=== PATIENT | female | born 1995 | race Caucasian/White ===

== ENCOUNTER → 2017-02-22 | Outpatient (REF) | payer OTHER | LOC: M SFHCLERA 13:11 | PROVIDERS: ATTEND Nurse Practitioner Family | DX: L03.031 Cellulitis of right toe (principal) ==

== ENCOUNTER 2017-09-02 11:45 | Emergency (ER) | payer BC, OTHER | END 2017-09-02 13:14 | disposition home or self-care (01) | LOC: M ED 11:45 | DX: J30.9 Allergic rhinitis, unspecified (principal); R11.0 Nausea; Z32.02 Encounter for pregnancy test, result negative | CPT/HCPCS: 81025 ==

== ENCOUNTER → 2019-04-18 | Outpatient (REF) | payer OTHER ==
[~2019-04-18] MED LIST: PREVTAB2; ZOFR4TAB16 PO
[2019-04-18 22:49] LABS: INFLUENZA A AMPLIFICATION NEGATIVE (NEGATIVE); INFLUENZA B AMPLIFICATION POSITIVE (NEGATIVE)
== END ==
LOC: M LAB REF 11:47
PROVIDERS: ATTEND Physician Assistant
DX: J11.1 Influenza due to unidentified influenza virus with other respiratory manifestations (principal)

== ENCOUNTER → 2021-02-19 | Outpatient (REF) | payer OTHER ==
[~2021-02-19] MED LIST changes: +ONDA4TAB6 PO
== END ==
LOC: M LAB REF 12:28
PROVIDERS: ATTEND Physician Assistant
DX: R50.9 Fever, unspecified (principal)

== ENCOUNTER 2021-05-04 10:05 | Emergency (ER) | payer OTHER ==
[~2021-05-04] VITALS: Ht 157.5 cm; Wt 113.4 kg
[~2021-05-04 10:05] MED LIST changes: -ONDA4TAB6 PO
[2021-05-04 12:15] LABS: BASO % 0.4 % (0.0-1.0); EOS # 0.1 10^3/uL (0.0-0.5); EOS % 0.6 % (0.0-3.0); HEMATOCRIT 39.2 % (36.0-47.0); HEMOGLOBIN 13.2 g/dl (12.0-15.5); LYMPH # 1.4 10^3/uL (1.5-5.0); LYMPH % 13.6 % (24.0-44.0); MEAN CORPUSCULAR HEMOGLOBIN 29.9 pg (27.0-33.0); MEAN CORPUSCULAR HGB CONC 33.7 g/dl (32.0-36.5); MEAN CORPUSCULAR VOLUME 88.7 fl (80.0-96.0); MONO # 0.8 10^3/uL (0.0-0.8); MONO % 7.4 % (2.0-8.0); NEUTROPHILS # 8.1 10^3/uL (1.5-8.5); NEUTROPHILS % 77.7 % (36.0-66.0); PLATELET COUNT, AUTOMATED 342 10^3/uL (150-450); RED BLOOD COUNT 4.42 10^6/uL (4.00-5.40); WHITE BLOOD COUNT 10.5 10^3/uL (4.0-10.0)
[2021-05-04 13:26] LABS: ALBUMIN 3.8 GM/DL (3.2-5.2); ALT/SGPT 43 U/L (12-78); BILIRUBIN,DIRECT 0.2 MG/DL (0.0-0.2); BILIRUBIN,TOTAL 1.1 MG/DL (0.2-1.0); BLOOD UREA NITROGEN 12 MG/DL (7-18); CARBON DIOXIDE LEVEL 25 MEQ/L (21-32); CHLORIDE LEVEL 106 MEQ/L (98-107); CREATININE FOR GFR 0.81 MG/DL (0.55-1.30); GLOMERULAR FILTRATION RATE > 60.0 (>60); GLUCOSE, FASTING 104 MG/DL (70-100); LIPASE 193 U/L (73-393); SODIUM LEVEL 137 MEQ/L (136-145); TOTAL PROTEIN 7.4 GM/DL (6.4-8.2)
[2021-05-04] MEDS ORDERED: NS 1,000 ML IV ONE (13:45)
[2021-05-04] MEDS ORDERED: ONDANSETRON 4MG/2ML VIAL IV ONE (13:45)
[2021-05-04] MEDS ORDERED: ISOVUE-370 76% 100ML VIAL As Ordered ONE (13:58)
[2021-05-04] MEDS ORDERED: ONDA4TAB6 PO (15:14)
[2021-05-04 15:22] VITALS: BP 138/90
== END 2021-05-04 16:33 | disposition home or self-care (01) ==
LOC: M ED 10:05
DX: K52.9 Noninfective gastroenteritis and colitis, unspecified (principal); R10.84 Generalized abdominal pain; R11.2 Nausea with vomiting, unspecified; K64.9 Unspecified hemorrhoids; K62.5 Hemorrhage of anus and rectum; E86.0 Dehydration; Z79.899 Other long term (current) drug therapy
CPT/HCPCS: 74177; 80048; 80076; 81001; 83690; 84702; 85025; 87086; 96361; 96374; 99284; J2405; Q9967

== ENCOUNTER → 2021-09-28 | Outpatient (REF) | payer OTHER ==
[~2021-09-28] MED LIST changes: +ONDA4TAB6 PO
== END ==
LOC: M LAB REF 17:21
PROVIDERS: ATTEND Nurse Practitioner Family
DX: Z01.419 Encounter for gynecological examination (general) (routine) without abnormal findings (principal)

== ENCOUNTER → 2021-12-13 | Outpatient (CLI) | payer OTHER ==
[2021-12-13 18:15] LABS: BASO # 0.1 10^3/uL (0.0-0.2); BASO % 0.6 % (0.0-1.0); EOS # 0.5 10^3/uL (0.0-0.5); EOS % 4.5 % (0.0-3.0); HEMATOCRIT 40.1 % (36.0-47.0); HEMOGLOBIN 12.9 g/dl (12.0-15.5); LYMPH # 2.8 10^3/uL (1.5-5.0); LYMPH % 25.5 % (24.0-44.0); MEAN CORPUSCULAR HEMOGLOBIN 30.1 pg (27.0-33.0); MEAN CORPUSCULAR HGB CONC 32.2 g/dl (32.0-36.5); MEAN CORPUSCULAR VOLUME 93.7 fl (80.0-96.0); MONO # 0.6 10^3/uL (0.0-0.8); MONO % 5.8 % (2.0-8.0); NEUTROPHILS # 6.8 10^3/uL (1.5-8.5); NEUTROPHILS % 63.3 % (36.0-66.0); PLATELET COUNT, AUTOMATED 318 10^3/uL (150-450); RED BLOOD COUNT 4.28 10^6/uL (4.00-5.40); WHITE BLOOD COUNT 10.8 10^3/uL (4.0-10.0)
[2021-12-13 18:57] LABS: ALBUMIN 3.7 GM/DL (3.2-5.2); ALT/SGPT 46 U/L (12-78); BILIRUBIN,TOTAL 0.6 MG/DL (0.2-1.0); BLOOD UREA NITROGEN 20 MG/DL (7-18); CALCIUM LEVEL 9.1 MG/DL (8.5-10.1); CARBON DIOXIDE LEVEL 28 MEQ/L (21-32); CHLORIDE LEVEL 105 MEQ/L (98-107); CREATININE FOR GFR 0.88 MG/DL (0.55-1.30); FREE T4 0.83 NG/DL (0.76-1.46); GLOMERULAR FILTRATION RATE > 60.0 (>60); GLUCOSE, FASTING 102 MG/DL (70-100); POTASSIUM SERUM 4.4 MEQ/L (3.5-5.1); SODIUM LEVEL 137 MEQ/L (136-145); TOTAL PROTEIN 7.5 GM/DL (6.4-8.2)
[2021-12-13 19:01] LABS: HEMOGLOBIN A1c 5.4 %
[2021-12-13 19:16] LABS: HCG, SERUM QUALITATIVE NEGATIVE (NEGATIVE)
[2021-12-13 20:22] LABS: TOTAL 25(OH) VITAMIN D 25.4 NG/ML (30.0-100.0)
[2021-12-13 20:23] LABS: PROGESTERONE 10.81 NG/ML; PROLACTIN 15.2 NG/ML
[2021-12-13 20:24] LABS: FOLLICLE STIMULATING HORMONE 3.5 mIU/mL; LUTEINIZING HORMONE 7.5 mIU/mL
== END ==
LOC: M PLALAB 15:59
PROVIDERS: ATTEND Obstetrics & Gynecology
DX: N97.9 Female infertility, unspecified (principal)

== ENCOUNTER → 2023-08-30 | Outpatient (CLI) | payer OTHER ==
[~2023-08-30] MED LIST changes: +ONDA-282 PO; -ONDA4TAB6 PO
[2023-08-30 13:46] LABS: CHOLESTEROL RISK RATIO 2.66 (<5); HDL CHOLESTEROL 59.2 MG/DL (> 40); HDL CHOLESTEROL 59.2 MG/DL (>40); NON-HDL-C 98.8 MG/DL
[2023-08-30 13:50] LABS: HEMOGLOBIN A1c 5.2 % (4.0-6.0)
== END ==
LOC: M PLALAB 10:46
PROVIDERS: ATTEND Obstetrics & Gynecology
DX: N92.6 Irregular menstruation, unspecified (principal); E78.00 Pure hypercholesterolemia, unspecified

== ENCOUNTER → 2024-11-27 | Outpatient (REF) | payer OTHER ==
[2024-11-27 13:59] LABS: APPEARANCE, URINE CLOUDY (CLEAR); BACTERIA, URINE AUTO 1+ (NEGATIVE); BILIRUBIN, URINE AUTO NEGATIVE (NEGATIVE); BLOOD, URINE BLOOD 2+ (NEGATIVE); GLUCOSE, URINE (UA) AUTO NEGATIVE (NEGATIVE); KETONE, URINE AUTO NEGATIVE (NEGATIVE); LEUKOCYTE ESTERASE, URINE AUTO 2+ (NEGATIVE); MUCUS, URINE SMALL (NEGATIVE); NITRITE, URINE AUTO NEGATIVE (NEGATIVE); PROTEIN, URINE AUTO 1+ mg/dL (NEGATIVE); RBC, URINE AUTO 15 /HPF (0-3); SPECIFIC GRAVITY URINE AUTO 1.025 (1.002-1.035); SQUAMOUS EPITHELIAL CELL UR AU 6 /HPF (0-6); UROBILINOGEN, URINE AUTO 0.2 mg/dL (0.0-2.0); WBC, URINE AUTO TNTC /HPF (0-3)
== END ==
LOC: M LAB REF 12:19
PROVIDERS: ATTEND Physician Assistant
DX: N39.0 Urinary tract infection, site not specified (principal)

== ENCOUNTER 2024-12-17 19:10 | Emergency (ER) | payer BC, OTHER ==
[~2024-12-17] VITALS: Ht 157.5 cm; Wt 109.0 kg
[2024-12-17 21:52] LABS: BASO # 0.1 10^3/uL (0.0-0.2); BASO % 0.5 % (0.0-1.0); EOS # 0.1 10^3/uL (0.0-0.5); EOS % 0.6 % (0.0-3.0); LYMPH # 1.6 10^3/uL (1.5-5.0); LYMPH % 16.4 % (24.0-44.0); MONO # 0.8 10^3/uL (0.0-0.8); MONO % 8.3 % (2.0-8.0); NEUTROPHILS # 7.1 10^3/uL (1.5-8.5); NEUTROPHILS % 74.0 % (36.0-66.0); PLATELET COUNT, AUTOMATED 287 10^3/uL (150-450)
[2024-12-17 22:18] LABS: ALT/SGPT 31 U/L (7.0-40); AST/SGOT 20 U/L (<34); CALCIUM LEVEL 8.5 MG/DL (8.5-10.1); CARBON DIOXIDE LEVEL 25 MMOL/L (20-31); CHLORIDE LEVEL 106 MMOL/L (98-107); CREATININE FOR GFR 0.87 MG/DL (0.55-1.30); GLOMERULAR FILTRATION RATE > 90.0 (>60); HCG, SERUM QUALITATIVE NEGATIVE (NEGATIVE); POTASSIUM SERUM 3.8 MMOL/L (3.5-5.1); SODIUM LEVEL 139 MMOL/L (136-145)
[2024-12-18] MEDS ORDERED: ONDA-282 PO (00:12)
[2024-12-18] MEDS: ONDANSETRON 4MG ORAL DISINTEGRATING TAB PO ONE ×2 (00:38→02:03)
[2024-12-18 02:00] VITALS: BP 111/54; TEMP 99; O2SAT 96
== END 2024-12-18 02:07 | disposition home or self-care (01) ==
LOC: M ED 19:10
DX: A09 Infectious gastroenteritis and colitis, unspecified (principal); B34.8 Other viral infections of unspecified site; Z20.9 Contact with and (suspected) exposure to unspecified communicable disease; Z79.3 Long term (current) use of hormonal contraceptives; Z88.2 Allergy status to sulfonamides; Z91.89 Other specified personal risk factors, not elsewhere classified; Z91.040 Latex allergy status